=== PATIENT | female | born 1995 | race Caucasian/White ===

== ENCOUNTER 2016-09-12 18:56 | Emergency (ER) | payer OTHER ==
[~2016-09-12] VITALS: Ht 167.6 cm; Wt 54.4 kg
[2016-09-12 19:19] VITALS: BP 100/68
--- NOTE | 2016-09-12 19:55 | RADIOLOGY REPORT ---
EXAMINATION: XR ANKLE, RIGHT CLINICAL INFORMATION: Fracture versus sprain COMPARISON: None TECHNIQUE: AP, lateral, and mortise views of the right ankle. FINDINGS: Normal bony mineralization. Subtle cortical elevation noted along the inferolateral aspect of the talus may represent a projectional change. It could not be verified on the additional views. No gross overlying soft tissue swelling. Ankle mortise is preserved. IMPRESSION: Subtle cortical irregularity inferolateral aspect of the talus may represent a projectional change. Occult fracture cannot be entirely excluded. Clinical correlation for point tenderness in this region is recommended.
--- NOTE | 2016-09-12 20:12 | ED ANKLE/FOOT INJURY COMPLAINT ---
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 PT DENIES ANY OTHER INJURY. PT REFUSED MEDS IN TRIAGE Triage Nurses Notes Reviewed? yes : No Patient currently breastfeeds: No HPI: Patient is a 21 year old female presents complaining of right ankle pain. Patient missed a step and twisted her ankle causing her to fall. Injury occurred at approximately 1815 this evening. Pain is mild to moderate at rest, severe with movement and attempting ambulation. Denies head injury, neck pain, back pain. Past History Travel History Traveled to [place] past 21 day No Medical History Any Pertinent Medical History? none Neurological: NONE EENT: NONE Cardiovascular: NONE Respiratory: NONE Gastrointestinal: NONE Hepatic: NONE Renal: NONE Musculoskeletal: NONE Psychiatric: NONE Endocrine: NONE Blood Disorders: NONE Surgical History Surgical History: non-contributory Psychosocial History What is your primary language B[place]an Tobacco Use: Never used ETOH Use: occasional use Illicit Drug Use: denies illicit drug use Family History Hx Contributory? No Review of Systems Review of Systems Constitutional: Reports: no symptoms. Cardiovascular: Denies: chest pain. GI: Denies: abdominal pain. Musculoskeletal: Reports: see HPI. Denies: back pain, neck pain. Neurological/Psychological: Denies: headache. Hematologic/Endocrine: Denies: bleeding. Immunologic/Allergic: Reports: no symptoms. Physical Exam Physical Exam General Appearance: well developed/nourished, alert, awake Head: atraumatic, normal appearance Eyes: Bilateral: normal appearance. Ears, Nose, Throat: hearing grossly normal Neck: normal inspection, full range of motion Cardiovascular/Respiratory: no respiratory distress Back: normal range of motion Leg/Knee/Thigh Left: normal range of motion, normal inspection Leg/Knee/Thigh Right: normal range of motion, normal inspection Ankle Right: tenderness inferior to right lateral malleolus with mild ecchymosis and swelling. Joint stable Foot Right: normal inspection, normal range of motion, nontender Neuro/Vascular: normal motor function, normal sensation Tendon: normal tendon function Progress Differential Diagnosis: fracture, sprain, contusion Plan of Care: Orders Procedure Date/time Status Durable Medical Equipment 09/12 2023 Active Patient declined pain medication on initial exam. Tenderness in area of possible avulsion fracture on x-ray. Patient placed in posterior short leg splint, discussed non weight bearing and patient to follow up with Dr. Valadez. (JUAN LUIS RAYMOND) Diagnostic Imaging: Viewed by Me: Radiology Read. Discussed w/RAD: Radiology Read. Radiology Impression: PATIENT: KAELYN SULLIVAN PRESENT AGE: 21 PATIENT ACCOUNT NO: [id number] : 93 LOCATION: [facility] ORDERING PHYSICIAN: HALEIGH SCHILLING MD SERVICE DATE: 09/12/16-1923 EXAM TYPE: RAD - XRY-ANKLE 3 OR MORE VIEWS R EXAMINATION: XR ANKLE, RIGHT CLINICAL INFORMATION: Fracture versus sprain COMPARISON: None TECHNIQUE: AP, lateral, and mortise views of the right ankle. FINDINGS: Normal bony mineralization. Subtle cortical elevation noted along the inferolateral aspect of the talus may represent a projectional change. It could not be verified on the additional views. No gross overlying soft tissue swelling. Ankle mortise is preserved. IMPRESSION: Subtle cortical irregularity inferolateral aspect of the talus may represent a projectional change. Occult fracture cannot be entirely excluded. Clinical correlation for point tenderness in this region is recommended. DICTATED BY: BRANNON BABB MD DATE/TIME DICTATED:09/12/161948 INTERSTATE BUS DRIVER:SURESH DATE/TIME TRANSCRIBED:09/12/161948 CONFIDENTIAL, DO NOT COPY WITHOUT APPROPRIATE AUTHORIZATION. <Electronically signed in Other Vendor System> SIGNED BY: BRANNON BABB MD 09/12/161954 Departure Departure Time of Disposition: 2022 Disposition: HOME OR SELF CARE Condition: Stable Clinical Impression Primary Impression: Fracture, talus closed Qualifiers: Encounter type: initial encounter Talus location: unspecified portion of talus Fracture alignment: nondisplaced Laterality: unspecified laterality Qualified Code: S92.109A - Unspecified fracture of unspecified talus, initial encounter for closed fracture Referrals: HERBERT VALADEZ DPM PATIENT HAS NO PRIMARY CARE DR (PCP/Family) Additional Instructions: Rest, elevate, wear splint until seen by Dr. Valadez. Call in the morning to be seen this week for further evaluation. Return to the ER if worsening of symptoms. Departure Forms: Customer Survey General Discharge Information Procedures Splinting Location: right ankle Hand-Made Type: orthoglass Splint: posterior short leg splint Splint Applied By: splint applied by me Pre-Proc Neuro Vasc Exam: normal Post-Proc Neuro Vasc Exam: normal
== END 2016-09-12 20:47 ==
LOC: ERH 18:56
DX: S92.101A Unspecified fracture of right talus, initial encounter for closed fracture (principal); W10.9XXA Fall (on) (from) unspecified stairs and steps, initial encounter
CPT/HCPCS: 73610-RT